=== PATIENT | female | born 1980 | race Hispanic/Latino ===

== ENCOUNTER 2018-06-04 14:58 | Outpatient (CLI) | payer OTHER ==
--- NOTE | 2018-06-04 15:23 | ULT ---
ULTRASOUND NECK SOFT TISSUES: Date: 06/04/18 HISTORY: Enlarged lymph nodes. FINDINGS/IMPRESSION: Sonographic evaluation of the region of palpable concern in the right neck demonstrates a solid mass measuring 3.7 x 1.8 x 2.6 cm, with presence of flow in the hilum. This likely represents an enlarged lymph node. Further evaluation with contrast enhanced CT scan of the neck and subsequent biopsy is recommended. POS: OFF
== END 2018-06-04 14:59 | disposition home or self-care (01) ==
LOC: BICULT 14:58
PROVIDERS: ATTEND Family Medicine
DX: R59.0 Localized enlarged lymph nodes (principal)
CPT/HCPCS: 76536

== ENCOUNTER 2018-07-29 08:55 | Outpatient (CLI) | payer OTHER ==
--- NOTE | 2018-07-29 09:56 | CT ---
CT NECK SOFT TISSUES, WITH CONTRAST: CLINICAL INDICATION:Neck Mass, Right Neck Swelling COMPARISON: No prior comparison imaging FINDINGS: Aerodigestive tract:There is effacement of the left piriform sinus. Parotid gland: No intrinsic mass, or inflammation. Submandibular glands:No intrinsic mass, or inflammation. Soft tissue mass/Lymph nodes:There are scattered borderline sized, bilateral cervical chain lymph nod es, within the right level 2A measuring 12 mm in diameter, which demonstrates subtle, low internal density that could either relate to a fatty hilum, or possibly internal necrosis. Within the left lev el 2A zone borderline-sized lymph node is seen, measuring 1 cm. Thyroid gland:Unremarkable Incidental findings:None of significance. IMPRESSION: Borderline-sized bilateral cervical chain lymph nodes. Low-density involving right level 2A lymph nod e is seen which could either relate to fatty hilum or possibly internal necrosis. Recommend clinical correlation, and as necessary, imaging follow-up with dedicated MRI of neck soft tissues may be obtained.
[2018-07-29] MEDS ORDERED: ISOVUE-370 76%-LOCM 1 ML ONE (10:56)
== END 2018-07-29 08:56 | disposition home or self-care (01) ==
LOC: BICCT 08:55
PROVIDERS: ATTEND Family Medicine
DX: R22.1 Localized swelling, mass and lump, neck (principal)
CPT/HCPCS: 70491; Q9966

== ENCOUNTER 2018-10-23 13:38 | Outpatient (CLI) | payer OTHER ==
--- NOTE | 2018-10-23 14:59 | MRI ---
Exam: Pre and postcontrast soft tissue neck MRI. HISTORY: Cervical lymphadenitis. Comparison: None Correlation: Postcontrast soft tissue neck CT 07/29/2018, soft tissue neck ultrasound. FINDINGS: Visualized brain parenchyma is unremarkable Adequate aeration of visualized paranasal air cells. Aerodigestive tract is patent. No mucosal abnormality. Midline fatty raphae of the tongue is preserv ed. Epiglottis is normal caliber. Preepiglottic fat is preserved Appropriate marrow signal intensity of the cervical and upper thoracic vertebra. Because brain parenc hyma, cervicomedullary junction, cervical cord and the upper thoracic cord are normal size and signal intensity Symmetric signal intensity of the parotid and submandibular glands Symmetric signal intensity of the sternocleidomastoid muscles. Redemonstration of a borderline enlarged right level 2 lymph node measuring 1.0 x 0.8 cm. This lymph node corresponds to recent CT finding. It is uncertain if this lymph node corresponds to the previous sonographic finding. However, this lymph node is near the region of the vitamin E tablet. Ly mph node may be amenable to fine-needle aspiration with ultrasound guidance. Additional lymph nodes are not appreciated. IMPRESSION: Upper normal right level 2 lymph node, corresponding to the lymph node noted on recent CT. This lymph node is at the level of palpable marker and is presumed to be consistent with the previous ultrasound finding. Lesion may be amenable to ultrasound-guided fine-needle aspiration. Transcribed Date/Time: 10/23/2018 4:04 PM
== END 2018-10-23 13:39 | disposition home or self-care (01) ==
LOC: BICMRI 13:38
PROVIDERS: ATTEND Family Medicine
DX: I88.9 Nonspecific lymphadenitis, unspecified (principal)
CPT/HCPCS: 70543